=== PATIENT | male | born 1965 | race Caucasian/White ===

== ENCOUNTER 2017-08-25 16:16 | Emergency (ER) | payer OTHER ==
[~2017-08-25] VITALS: Ht 180.3 cm; Wt 86.2 kg
[~2017-08-25 16:16] MED LIST: PERCOCET 5-3251 EACH PO
== END 2017-08-26 01:00 | disposition home or self-care (01) ==
LOC: ER 16:16
DX: M12.541 Traumatic arthropathy, right hand (principal); S62.101S Fracture of unspecified carpal bone, right wrist, sequela; W22.8XXS Striking against or struck by other objects, sequela; R42 Dizziness and giddiness; E10.9 Type 1 diabetes mellitus without complications; J06.9 Acute upper respiratory infection, unspecified